=== PATIENT | female | born 1990 | race American Indian/Alaskan Native ===

== ENCOUNTER 2020-12-18 20:09 | Inpatient (IN) | payer MEDICAID ==
[2020-12-18] MEDS ORDERED: MINERAL OIL 30 ML ORAL LIQD PO PRN (22:38)
[2020-12-18] MEDS ORDERED: AMPICILLIN/NS 2 GM/100 ML 2 GM/100 ML BAG IV ONE (22:38)
[2020-12-18] MEDS ORDERED: PROMETHAZINE 25 MG TAB PO PRN (22:38)
[2020-12-18] MEDS ORDERED: NalbUPHINE 10 MG/1 ML INJ IV PRN (22:38)
[2020-12-18] MEDS ORDERED: TERBUTALINE 1 MG/1 ML INJ SUB-Q PRN (22:38)
[2020-12-18] MEDS ORDERED: fentaNYL 100 MCG/2 ML INJ IV PRN (22:38)
[2020-12-18] MEDS ORDERED: LACTATED RINGERS 1,000 ML IV SCH (22:45)
[2020-12-18] MEDS ORDERED: MAGNESIUM SULFATE 4 GM/100 ML BAG IV ONE (22:45)
[2020-12-18] MEDS ORDERED: LIDOCAINE (2%) 20 MG/1 ML VIAL 20 ML MDV INFILTRATI ONE (22:58)
[2020-12-18] MEDS ORDERED: OXYTOCIN DRIP 30 UNITS/500 ML BAG IV SCH ×2 (23:00→23:45)
--- NOTE | 2020-12-18 23:10 | History and Physical Report ---
History of Present Illness Date of examination: 12/18/20 Date of admission: 12/18/20 Chief complaint: scheduled induction for uncontrolled HTN per pt report History of present illness: at 37.3wk by LMP c/w [facility]. care at [facility]. Pt also seen by [facility] for consult. Pt sent for uncontrolled HTN on 2 meds procardia and labetalol 200mg bid. Pt admits to taking metformin 500mg bid for her pregest DM. Hgb a1c 5.6 in the records. Pt denies headache. Denies feeling ctx. Pt admits to movement, denies LOF or VB. shows pt advised to quit marijuana. Past History Past Medical History: hypertension, diabetes, other (Obesity, UTI treated this preg. TSH normal 1.2 2nd trimester, previously 0.5 in 1st) Family/Genetic History: none Social history: other (marijuana abuse) - Obstetrical History Expected Date of Delivery: 01/05/21 (O+; Ab neg; RI, RPR, HIV and HBsAg all neg; GBS neg in records) Actual Gestation: 37 Week(s) 3 Day(s) : 1 Number of Living Children: 0 Medications and Allergies Allergies Allergy/AdvReac Type Severity Reaction Status Date / Time No Known Allergies Allergy Unverified 12/18/20 21:00 Home Medications Medication Instructions Recorded Confirmed Last Taken Type Labetalol 200mg TAB 200 mg PO BID 12/18/20 12/18/20 12/18/20 18:00 History One Daily Tablet 1 tab PO DAILY 12/18/20 12/18/20 12/18/20 10:00 His tory metFORMIN [Glucophage] 500 mg PO BID 12/18/20 12/18/20 12/18/20 18:00 History Active Meds: Active Medications Ephedrine Sulfate (Ephedrine Sulfate 50 Mg/1 Ml Inj) 10 mg IV Q2M PRN PRN Reason: Hypotension Fentanyl (Fentanyl 100 Mcg/2 Ml Inj) 100 mcg IV Q2H PRN PRN Reason: Pain,Severe (7-10) LABOR PAIN Hydralazine HCl (Hydralazine 20 Mg/1 Ml Inj) 5 mg IV Q30MIN PRN PRN Reason: Hypertension Lactated Ringer's (Lactated Ringers) 1,000 mls @ 125 mls/hr IV DIRECT MILES Oxytocin/Sodium Chloride (Pitocin/Ns 30 Unit/500ml) 30 units in 500 mls @ 40 mls/hr IV TITR MILES; Protocol Ampicillin Sodium (Ampicillin/Ns 2 Gm/100 Ml) 2 gm in 100 mls @ 100 mls/hr IV ONCE ONE; Protocol Stop: 12/18/20 23:37 Lactated Ringer's (Lactated Ringers) 1,000 mls @ 125 mls/hr IV DIRECT MILES Magnesium Sulfate (Magnesium Sulfate 40gm/1000ml) 40 gm in 1,000 mls @ 25 mls/hr IV DIRECT MILES Oxytocin/Sodium Chloride (Pitocin/Ns 30 Unit/500ml) 30 units in 500 mls @ 2 mls/hr IV TITR MILES; Protocol Labetalol HCl (Labetalol 200 Mg Tab) 200 mg PO BID MILES Labetalol HCl (Labetalol 20 Mg/4 Ml Inj) 20 mg IV ONCE ONE Stop: 12/18/20 23:46 Labetalol HCl (Labetalol 100 Mg Tab) 100 mg PO BID [facility] Mineral Oil (Mineral Oil 30 Ml Oral Liqd) 30 ml PO QHS PRN PRN Reason: Constipation Nalbuphine HCl (Nalbuphine 10 Mg/1 Ml Inj) 10 mg IV Q2H PRN PRN Reason: Pain, Moderate (4-6) Promethazine HCl (Promethazine 25 Mg Tab) 25 mg PO Q6H PRN PRN Reason: Nausea And Vomiting Terbutaline Sulfate (Terbutaline 1 Mg/1 Ml Inj) 0.25 mg SUB-Q ONCE PRN PRN Reason: Hyperstimulation/Hypertonicity Review of Systems All systems: negative (heartburn since x1 day ago.) - Vital Signs Vital signs: Vital Signs Pulse BP 93 H 142/92 12/18/20 20:56 12/18/20 20:56 Temp Pulse Resp BP Pulse Ox 98.1 F 80 17 161/87 100 12/18/20 22:33 12/18/20 23:03 12/18/20 22:33 12/18/20 22:33 12/18/20 23:03 - Physical Exam Breasts: Positive: deferred Cardiovascular: Regular rate Lungs: Positive: Normal air movement Abdomen: Positive: other (obese) Genitourinary (Female): Positive: normal external genitalia Vulva: both: normal Vagina: Positive: normal moisture Cervix: Positive: other (posterior cervix) Anus/Rectum: Positive: normal perianal skin Extremities: Positive: normal - Obstetrical FHR: category 1 Uterine Contraction Monitor Mode: External Cervical Dilatation: 3 Cervical Effacement Percentage: 80 station: -2 Uterine Contraction Pattern: Irregular Results All other labs normal. Assessment and Plan Term IUP at 37.3wks with chronic HTN, superimposed preeclampsia; Pre-gest DM on metformin; Morbid Obesity in early labor; ?Thyroid disorder; H/O Substance abuse. 1. Admit to labor and delivery 2. PIH labs, Mag sulfate for seizure prophylaxis and IV hydrallazine and/or labetalol for BP>160/110; Labetalol increased to 300mg bid; procardia held 3. Augment labor with IV pitocin 4. Acucheck every 2hrs until active labor then every hr for pre-gest DM; check hgb A1c 5. may have IV pain med or epidural when pt desires 6. Will check TSH/FT4 7. Will check urine drug screen with substance abuse of marijuana Expect
[2020-12-18 23:48] LABS: Hematocrit 36.8 % (30.3-42.9); Hemoglobin 12.3 gm/dl (10.1-14.3); Mean Corpuscular HGB Conc 33 % (30-34); Mean Corpuscular Volume 87 fl (79-97); Platelet Count 164 K/mm3 (140-440); Red Blood Count 4.25 M/mm3 (3.65-5.03); Red Cell Distribution Width 13.4 % (13.2-15.2)
[2020-12-18] MEDS ORDERED: DINOPROSTONE 10 MG VAG SUPP VG ONE (23:48)
[2020-12-19] MEDS: LACTATED RINGERS 1,000 ML IV SCH ×4 (00:08→22:30)
[2020-12-19 00:23] LABS: Alanine Aminotransferase 19 units/L (7-56); Albumin 3.9 g/dL (3.9-5); Blood Urea Nitrogen 9 mg/dL (7-17); Calcium 8.9 mg/dL (8.4-10.2); Hemolysis Index 313
[2020-12-19 00:25] LABS: Amphetamine Screen,Urine PRESUMPTIVE NEGATIVE; Benzodiazepines Screen,Urine PRESUMPTIVE NEGATIVE; Cannabinoid Screen,Urine PRESUMPTIVE NEGATIVE; Cocaine Screen,Urine PRESUMPTIVE NEGATIVE; Methadone Screen,Urine PRESUMPTIVE NEGATIVE; Opiate Screen,Urine PRESUMPTIVE NEGATIVE
[2020-12-19 00:33] LABS: BUN/Creatinine Ratio 23
[2020-12-19] MEDS: MAGNESIUM SULFATE 40GM/1000ML 40 GM/1,000 ML BAG IV SCH (00:34)
[2020-12-19] MEDS: hydrALAZINE 20 MG/1 ML INJ IV PRN (04:08)
[2020-12-19 04:27] LABS: Uric Acid 6.6 mg/dL (3.5-7.6)
--- NOTE | 2020-12-19 09:40 | Progress Note ---
Assessment and Plan A: IUP@ 37.4 wks CHTN with preeclampsia Pregestational diabetes p: Continue monitoring FSBS Q 4 HR per MD Continue MgSo4 and Pitocin Anticipate Subjective - Subjective Date of service: 12/19/20 Principal diagnosis: IUP@ 37.4 wks Patient reports: movement normal Objective - Vital Signs Vital Signs: Vital Signs - 12hr 12/18/20 12/18/20 12/18/20 21:38 21:43 21:48 Temperature Pulse Rate 87 97 H 98 H Respiratory Rate Blood Pressure Blood Pressure [Right] O2 Sat by Pulse 99 100 100 Oximetry 12/18/20 12/18/20 12/18/20 21:53 21:58 22:03 Temperature Pulse Rate 86 85 85 Respiratory Rate Blood Pressure Blood Pressure [Right] O2 Sat by Pulse 100 100 100 Oximetry 12/18/20 12/18/20 12/18/20 22:08 22:13 22:18 Temperature Pulse Rate 85 83 84 Respiratory Rate Blood Pressure Blood Pressure [Right] O2 Sat by Pulse 100 100 100 Oximetry 12/18/20 12/18/20 12/18/20 22:23 22:28 22:33 Temperature 98.1 F Pulse Rate 90 86 83 Respiratory 17 Rate Blood Pressure 161/87 Blood Pressure [Right] O2 Sat by Pulse 100 100 99 Oximetry 12/18/20 12/18/20 12/18/20 22:38 22:43 22:48 Temperature Pulse Rate 79 86 89 Respiratory Rate Blood Pressure Blood Pressure [Right] O2 Sat by Pulse 99 100 100 Oximetry 12/18/20 12/18/20 12/18/20 22:53 22:58 23:03 Temperature Pulse Rate 85 100 H 80 Respiratory Rate Blood Pressure Blood Pressure [Right] O2 Sat by Pulse 100 100 100 Oximetry 12/18/20 12/18/20 12/18/20 23:08 23:13 23:18 Temperature Pulse Rate 93 H 81 85 Respiratory Rate Blood Pressure Blood Pressure [Right] O2 Sat by Pulse 100 100 100 Oximetry 12/18/20 12/18/20 12/18/20 23:22 23:23 23:28 Temperature Pulse Rate 82 88 87 Respiratory Rate Blood Pressure 142/64 Blood Pressure [Right] O2 Sat by Pulse 100 100 Oximetry 12/18/20 12/18/20 12/18/20 23:33 23:38 23:43 Temperature Pulse Rate 81 84 76 Respiratory Rate Blood Pressure Blood Pressure [Right] O2 Sat by Pulse 100 100 100 Oximetry 12/18/20 12/18/20 12/18/20 23:48 23:52 23:53 Temperature Pulse Rate 78 85 85 Respiratory Rate Blood Pressure 110/58 Blood Pressure [Right] O2 Sat by Pulse 100 100 Oximetry 12/18/20 12/19/20 12/19/20 23:58 00:03 00:08 Temperature Pulse Rate 77 91 H 85 Respiratory Rate Blood Pressure Blood Pressure [Right] O2 Sat by Pulse 100 100 100 Oximetry 12/19/20 12/19/20 12/19/20 00:11 00:13 00:18 Temperature Pulse Rate 76 79 81 Respiratory Rate Blood Pressure 138/77 Blood Pressure [Right] O2 Sat by Pulse 100 100 Oximetry 12/19/20 12/19/20 12/19/20 00:19 00:20 00:23 Temperature Pulse Rate 81 84 83 Respiratory 16 Rate Blood Pressure 146/78 Blood Pressure 146/78 [Right] O2 Sat by Pulse 98 99 Oximetry 12/19/20 12/19/20 12/19/20 00:24 00:26 00:28 Temperature 98.2 F Pulse Rate 84 85 89 Respiratory 16 Rate Blood Pressure 132/73 Blood Pressure 132/73 [Right] O2 Sat by Pulse 98 99 Oximetry 12/19/20 12/19/20 12/19/20 00:29 00:30 00:33 Temperature Pulse Rate 94 H 87 83 Respiratory 17 Rate Blood Pressure 128/70 Blood Pressure 128/70 [Right] O2 Sat by Pulse 99 99 Oximetry 12/19/20 12/19/20 12/19/20 00:35 00:38 00:43 Temperature Pulse Rate 84 83 85 Respiratory Rate Blood Pressure 127/68 Blood Pressure [Right] O2 Sat by Pulse 99 94 Oximetry 12/19/20 12/19/20 12/19/20 00:48 00:52 00:53 Temperature Pulse Rate 91 H 82 88 Respiratory Rate Blood Pressure 141/80 Blood Pressure [Right] O2 Sat by Pulse 100 99 Oximetry 12/19/20 12/19/20 12/19/20 00:58 01:03 01:08 Temperature Pulse Rate 99 H 78 79 Respiratory Rate Blood Pressure Blood Pressure [Right] O2 Sat by Pulse 99 98 99 Oximetry 12/19/20 12/19/20 12/19/20 01:13 01:18 01:23 Temperature Pulse Rate 95 H 98 H 89 Respiratory Rate Blood Pressure Blood Pressure [Right] O2 Sat by Pulse 99 100 100 Oximetry 12/19/20 12/19/20 12/19/20 01:28 01:30 01:33 Temperature Pulse Rate 89 95 H 83 Respiratory Rate Blood Pressure 145/82 Blood Pressure [Right] O2 Sat by Pulse 99 100 Oximetry 12/19/20 12/19/20 12/19/20 01:38 01:43 01:48 Temperature Pulse Rate 87 89 84 Respiratory Rate Blood Pressure Blood Pressure [Right] O2 Sat by Pulse 100 99 99 Oximetry 12/19/20 12/19/20 12/19/20 01:53 01:58 02:00 Temperature Pulse Rate 88 98 H 86 Respiratory Rate Blood Pressure 145/79 Blood Pressure [Right] O2 Sat by Pulse 100 100 Oximetry 12/19/20 12/19/20 12/19/20 02:03 02:08 02:13 Temperature Pulse Rate 85 79 79 Respiratory Rate Blood Pressure Blood Pressure [Right] O2 Sat by Pulse 100 100 100 Oximetry 12/19/20 12/19/20 12/19/20 02:18 02:23 02:28 Temperature Pulse Rate 84 91 H 82 Respiratory Rate Blood Pressure Blood Pressure [Right] O2 Sat by Pulse 100 100 100 Oximetry 12/19/20 12/19/20 12/19/20 02:32 02:33 02:38 Temperature Pulse Rate 88 85 87 Respiratory Rate Blood Pressure Blood Pressure [Right] O2 Sat by Pulse 94 100 100 Oximetry 12/19/20 12/19/20 12/19/20 02:43 02:48 02:53 Temperature Pulse Rate 81 85 79 Respiratory Rate Blood Pressure Blood Pressure [Right] O2 Sat by Pulse 100 100 100 Oximetry 12/19/20 12/19/20 12/19/20 02:58 03:03 03:08 Temperature Pulse Rate 92 H 86 90 Respiratory Rate Blood Pressure 194/97 Blood Pressure [Right] O2 Sat by Pulse 100 100 100 Oximetry 12/19/20 12/19/20 12/19/20 03:13 03:18 03:23 Temperature Pulse Rate 85 87 89 Respiratory Rate Blood Pressure Blood Pressure [Right] O2 Sat by Pulse 100 100 100 Oximetry 12/19/20 12/19/20 12/19/20 03:28 03:31 03:33 Temperature Pulse Rate 91 H 96 H 89 Respiratory Rate Blood Pressure 149/95 Blood Pressure [Right] O2 Sat by Pulse 100 100 Oximetry 12/19/20 12/19/20 12/19/20 03:38 03:43 03:48 Temperature Pulse Rate 84 84 86 Respiratory Rate Blood Pressure Blood Pressure [Right] O2 Sat by Pulse 100 100 100 Oximetry 12/19/20 12/19/20 12/19/20 03:50 03:53 03:58 Temperature Pulse Rate 99 H 99 H 93 H Respiratory Rate Blood Pressure Blood Pressure [Right] O2 Sat by Pulse 89 100 100 Oximetry 12/19/20 12/19/20 12/19/20 04:02 04:03 04:05 Temperature Pulse Rate 91 H 89 105 H Respiratory Rate Blood Pressure 195/102 Blood Pressure [Right] O2 Sat by Pulse 100 87 Oximetry 12/19/20 12/19/20 12/19/20 04:08 04:13 04:18 Temperature Pulse Rate 93 H 87 96 H Respiratory Rate Blood Pressure 195/102 Blood Pressure [Right] O2 Sat by Pulse 99 100 100 Oximetry 12/19/20 12/19/20 12/19/20 04:23 04:27 04:28 Temperature Pulse Rate 94 H 99 H 95 H Respiratory Rate Blood Pressure 147/97 Blood Pressure [Right] O2 Sat by Pulse 100 100 Oximetry 12/19/20 12/19/20 12/19/20 04:33 04:38 04:43 Temperature Pulse Rate 94 H 91 H 91 H Respiratory Rate Blood Pressure 137/82 Blood Pressure [Right] O2 Sat by Pulse 100 100 97 Oximetry 12/19/20 12/19/20 12/19/20 04:48 04:53 04:57 Temperature Pulse Rate 93 H 112 H 89 Respiratory Rate Blood Pressure 135/78 Blood Pressure [Right] O2 Sat by Pulse 99 100 Oximetry 12/19/20 12/19/20 12/19/20 04:58 05:03 05:08 Temperature Pulse Rate 95 H 86 90 Respiratory Rate Blood Pressure Blood Pressure [Right] O2 Sat by Pulse 99 100 100 Oximetry 12/19/20 12/19/20 12/19/20 05:11 05:13 05:18 Temperature Pulse Rate 88 86 83 Respiratory Rate Blood Pressure 146/85 Blood Pressure [Right] O2 Sat by Pulse 100 100 Oximetry 12/19/20 12/19/20 12/19/20 05:23 05:28 05:31 Temperature Pulse Rate 85 86 92 H Respiratory Rate Blood Pressure 145/75 Blood Pressure [Right] O2 Sat by Pulse 100 98 91 Oximetry 12/19/20 12/19/20 12/19/20 05:33 05:38 05:42 Temperature Pulse Rate 84 85 84 Respiratory Rate Blood Pressure 161/83 Blood Pressure [Right] O2 Sat by Pulse 100 100 Oximetry 12/19/20 12/19/20 12/19/20 05:43 05:48 05:53 Temperature Pulse Rate 87 105 H 81 Respiratory Rate Blood Pressure Blood Pressure [Right] O2 Sat by Pulse 99 89 100 Oximetry 12/19/20 12/19/20 12/19/20 05:57 05:58 06:03 Temperature Pulse Rate 90 79 93 H Respiratory Rate Blood Pressure 150/84 Blood Pressure [Right] O2 Sat by Pulse 99 100 Oximetry 12/19/20 12/19/20 12/19/20 06:08 06:13 06:18 Temperature Pulse Rate 83 84 73 Respiratory Rate Blood Pressure Blood Pressure [Right] O2 Sat by Pulse 100 100 100 Oximetry 12/19/20 12/19/20 12/19/20 06:23 06:28 06:33 Temperature Pulse Rate 78 74 79 Respiratory Rate Blood Pressure Blood Pressure [Right] O2 Sat by Pulse 99 100 100 Oximetry 12/19/20 12/19/20 12/19/20 06:38 06:42 06:43 Temperature Pulse Rate 79 88 96 H Respiratory Rate Blood Pressure 181/98 Blood Pressure [Right] O2 Sat by Pulse 100 100 Oximetry 12/19/20 12/19/20 12/19/20 06:48 06:53 06:58 Temperature Pulse Rate 96 H 73 75 Respiratory Rate Blood Pressure Blood Pressure [Right] O2 Sat by Pulse 100 100 100 Oximetry 12/19/20 12/19/20 12/19/20 07:03 07:08 07:13 Temperature Pulse Rate 79 86 84 Respiratory Rate Blood Pressure Blood Pressure [Right] O2 Sat by Pulse 99 99 99 Oximetry 12/19/20 12/19/20 12/19/20 07:14 07:18 07:23 Temperature Pulse Rate 87 83 81 Respiratory Rate Blood Pressure Blood Pressure [Right] O2 Sat by Pulse 88 100 100 Oximetry 12/19/20 12/19/20 12/19/20 07:28 07:33 07:38 Temperature Pulse Rate 81 90 74 Respiratory Rate Blood Pressure Blood Pressure [Right] O2 Sat by Pulse 100 99 100 Oximetry 12/19/20 12/19/20 12/19/20 07:42 07:43 07:45 Temperature Pulse Rate 86 92 H 90 Respiratory Rate Blood Pressure 146/87 146/87 Blood Pressure [Right] O2 Sat by Pulse 100 Oximetry 12/19/20 12/19/20 12/19/20 07:48 07:51 07:53 Temperature Pulse Rate 84 64 91 H Respiratory Rate Blood Pressure Blood Pressure [Right] O2 Sat by Pulse 100 90 100 Oximetry 12/19/20 12/19/20 12/19/20 07:56 07:58 08:03 Temperature 97.5 F L Pulse Rate 78 82 Respiratory 20 Rate Blood Pressure Blood Pressure [Right] O2 Sat by Pulse 100 100 100 Oximetry 12/19/20 12/19/20 12/19/20 08:07 08:08 08:12 Temperature Pulse Rate 95 H 94 H 83 Respiratory Rate Blood Pressure 163/91 Blood Pressure [Right] O2 Sat by Pulse 81 L 88 Oximetry 12/19/20 12/19/20 12/19/20 08:13 08:17 08:18 Temperature Pulse Rate 85 87 87 Respiratory Rate Blood Pressure Blood Pressure [Right] O2 Sat by Pulse 100 92 100 Oximetry 12/19/20 12/19/20 12/19/20 08:23 08:28 08:31 Temperature Pulse Rate 83 80 80 Respiratory Rate Blood Pressure 158/88 Blood Pressure [Right] O2 Sat by Pulse 100 100 Oximetry 12/19/20 12/19/20 12/19/20 08:34 08:39 08:44 Temperature Pulse Rate 80 87 75 Respiratory Rate Blood Pressure Blood Pressure [Right] O2 Sat by Pulse 99 98 98 Oximetry 12/19/20 12/19/20 12/19/20 08:45 08:49 08:54 Temperature Pulse Rate 74 95 H 85 Respiratory Rate Blood Pressure 148/76 Blood Pressure [Right] O2 Sat by Pulse 100 100 Oximetry 12/19/20 12/19/20 12/19/20 08:59 09:02 09:04 Temperature Pulse Rate 82 77 78 Respiratory Rate Blood Pressure 149/75 Blood Pressure [Right] O2 Sat by Pulse 100 100 Oximetry 05/12/0612/19/20 12/19/20 09:09 09:14 09:15 Temperature Pulse Rate 85 96 H 83 Respiratory Rate Blood Pressure 138/65 Blood Pressure [Right] O2 Sat by Pulse 100 100 Oximetry 12/19/20 12/19/20 12/19/20 09:19 09:24 09:29 Temperature Pulse Rate 84 87 76 Respiratory Rate Blood Pressure 141/65 Blood Pressure [Right] O2 Sat by Pulse 98 100 100 Oximetry - Exam Breasts: normal Abdomen: Present: normal appearance, soft, normal bowel sounds Vulva: both: normal Uterus: Present: normal FHR: category 1 Uterine Contraction Monitor Mode: External Cervical Dilatation: 4 Cervical Effacement Percentage: 75 station: -3 Uterine Contraction Frequency (min): irreg Uterine Contraction Pattern: Irregular Uterine Tone Measurement Phase: Resting Uterine Contraction Intensity: Mild Extremities: normal - Labs Labs: Abnormal Labs 12/18/20 12/19/20 12/19/20 21:24 01:18 06:02 Sodium 134 L Potassium 5.9 H Carbon Dioxide 21 L Creatinine 0.4 L Glucose 104 H POC Glucose 132 H 126 H Magnesium AST 46 H Lactate Dehydrogenase 578 H Total Protein 6.2 L 12/19/20 07:42 Sodium Potassium Carbon Dioxide Creatinine Glucose POC Glucose Magnesium 2.80 H AST Lactate Dehydrogenase Total Protein Laboratory Results - last 24 hr 12/18/20 12/18/20 12/18/20 21:24 21:24 21:24 WBC 6.4 RBC 4.25 Hgb 12.3 Hct 36.8 MCV 87 MCH 29 MCHC 33 RDW 13.4 Plt Count 164 Sodium 134 L Potassium 5.9 H Chloride 101.2 Carbon Dioxide 21 L Anion Gap 18 BUN 9 Creatinine 0.4 L Estimated GFR > 60 BUN/Creatinine Ratio 23 Glucose 104 H POC Glucose Uric Acid 6.6 Calcium 8.9 Magnesium Total Bilirubin 0.30 AST 46 H ALT 19 Alkaline Phosphatase 47 Lactate Dehydrogenase 578 H Total Protein 6.2 L Albumin 3.9 Albumin/Globulin Ratio 1.7 TSH Free T4 0.99 Urine Opiates Screen Urine Methadone Screen Ur Barbiturates Screen Ur Phencyclidine Scrn Ur Amphetamines Screen U Benzodiazepines Scrn Urine Cocaine Screen U Marijuana (THC) Screen Drugs of Abuse Note Blood Type Antibody Screen 12/18/20 12/18/20 12/19/20 21:24 22:15 01:18 WBC RBC Hgb Hct MCV MCH MCHC RDW Plt Count Sodium Potassium Chloride Carbon Dioxide Anion Gap BUN Creatinine Estimated GFR BUN/Creatinine Ratio Glucose POC Glucose 132 H Uric Acid Calcium Magnesium Total Bilirubin AST ALT Alkaline Phosphatase Lactate Dehydrogenase Total Protein Albumin Albumin/Globulin Ratio TSH 1.730 Free T4 Urine Opiates Screen Presumptive negative Urine Methadone Screen Presumptive negative Ur Barbiturates Screen Presumptive negative Ur Phencyclidine Scrn Presumptive negative Ur Amphetamines Screen Presumptive negative U Benzodiazepines Scrn Presumptive negative Urine Cocaine Screen Presumptive negative U Marijuana (THC) Screen Presumptive negative Drugs of Abuse Note Disclamer Blood Type Antibody Screen 12/19/20 12/19/20 12/19/20 02:08 06:02 07:42 WBC RBC Hgb Hct MCV MCH MCHC RDW Plt Count Sodium Potassium Chloride Carbon Dioxide Anion Gap BUN Creatinine Estimated GFR BUN/Creatinine Ratio Glucose POC Glucose 126 H Uric Acid Calcium Magnesium 2.80 H Total Bilirubin AST ALT Alkaline Phosphatase Lactate Dehydrogenase Total Protein Albumin Albumin/Globulin Ratio TSH Free T4 Urine Opiates Screen Urine Methadone Screen Ur Barbiturates Screen Ur Phencyclidine Scrn Ur Amphetamines Screen U Benzodiazepines Scrn Urine Cocaine Screen U Marijuana (THC) Screen Drugs of Abuse Note Blood Type O POSITIVE Antibody Screen Negative
[2020-12-19] MEDS ORDERED: NALOXONE 2 MG/2 ML INJ IV PRN (12:18)
[2020-12-19] MEDS ORDERED: LACTATED RINGERS 250 ML IV SOLN IV ONE (12:18)
--- NOTE | 2020-12-19 12:22 | Anesthesia Consultation ---
Anesthesia Consult and Med Hx Date of service: 12/19/20 - Airway Anesthetic Teeth Evaluation: Good ROM Head & Neck: Adequate Mental/Hyoid Distance: Adequate Mallampati Class: Class IV Intubation Access Assessment: Difficult - Pulmonary Exam CTA: Yes - Cardiac Exam Cardiac Exam: RRR - Pre-Operative Health Status ASA Pre-Surgery Classification: ASA3 Proposed Anesthetic Plan: Epidural - Pulmonary Hx Smoking: Yes Hx Asthma: No COPD: No Hx Pneumonia: No Hx Sleep Apnea: No - Cardiovascular System Hx Hypertension: Yes (since 16 y.o) Hx Heart Attack/AMI: No Hx Angina: No - Central Nervous System Hx Seizures: No Hx Psychiatric Problems: No - Gastrointestinal Hx Gastroesophageal Reflux Disease: No - Endocrine Hx Renal Disease: No Hx End Stage Renal Disease: No Hx Cirrhosis: No Hx Insulin Dependent Diabetes: Yes Hx Non-Insulin Dependent Diabetes: No Hx Hypothyroidism: No Hx Hyperthyroidism: No - Hematic Hx Anemia: Yes Hx Sickle Cell Disease: No - Other Systems Hx Alcohol Use: No Hx Obesity: Yes
--- NOTE | 2020-12-19 12:25 | Progress Note ---
Labor Epidural - Labor Epidural Start Time: 11:56 Stop Time: 12:13 Performed by:: ROSALINDA ANTHONY ([facility]) Procedure: Patient is requesting epidural for labor and pain. H&P, labs were reviewed. Patient IDed, H&P reviewed, all questions and concerns were answered, and consent was signed. Timeout was performed at bedside. Patient in sitting position. Sterile prep and drape was performed. 3ml of 1% lidocaine skin wheal at L[3]- L [4]. 18-gauge Tuohy epidural needle was advanced to loss of resistance with air technique 9cm. Negative CSF negative blood. Epidural catheter advanced to [15] centimeters. [negative] Aspiration [negative] test dose. Sterile dressing applied. Patient tolerated procedure.
[2020-12-19] MEDS ORDERED: diphenhydrAMINE 50 MG/ML VIAL IV PRN (12:30)
[2020-12-19] MEDS ORDERED: NalbUPHINE 10 MG/1 ML INJ IV PRN (12:30)
[2020-12-19] MEDS ORDERED: ONDANSETRON 4 MG/2 ML INJ IV PRN (12:30)
[2020-12-19] MEDS ORDERED: fentaNYL-BUPIV 2 MCG/ML-0.125% 200 MCG/100 ML BAG EPIDURAL SCH (13:00)
[2020-12-19] MEDS: ePHEDrine SULFATE 50 MG/1 ML INJ IV PRN ×2 (13:01→13:03)
[2020-12-20] MEDS ORDERED: LIDOCAINE (2%) 20 MG/1 ML VIAL 20 ML MDV INFILTRATI ONE ×2 (01:18→01:22)
[2020-12-20] MEDS ORDERED: diphenhydrAMINE 25 MG CAP PO PRN (01:59)
[2020-12-20] MEDS ORDERED: LANOLIN/ZINC/DIMETHICONE (LANSINOH) 7 GM TP PRN (01:59)
[2020-12-20] MEDS ORDERED: ACETAMINOPHEN 325 MG TAB PO PRN (01:59)
[2020-12-20] MEDS ORDERED: ONDANSETRON 4 MG/2 ML INJ IV PRN (01:59)
[2020-12-20] MEDS ORDERED: MAGNESIUM HYDROXIDE (MOM) ORAL LIQD UDC PO PRN (01:59)
[2020-12-20] MEDS ORDERED: WITCH HAZEL/ GLYCERIN PAD TP PRN (01:59)
[2020-12-20] MEDS ORDERED: PROMETHAZINE 25 MG TAB PO PRN (01:59)
[2020-12-20] MEDS ORDERED: PROMETHAZINE 25 MG RECT SUPP PR PRN (01:59)
[2020-12-20] MEDS ORDERED: HYDROCORTISONE 25 MG RECTAL SUPP PR PRN (01:59)
--- NOTE | 2020-12-20 02:03 | Procedure Note ---
OB Delivery Note - Delivery Date of Delivery: 12/20/20 Surgeon: GRACIE ALARCON JR Estimated blood loss: other (400cc) - Vaginal Delivery presentation: vertex Delivery position: OA Intrapartum events: none Delivery induction: oxytocin Delivery augmentation: rupture of membranes, pitocin Delivery monitor: external FHT, external uterine Route of delivery: Delivery placenta: spontaneous Episiotomy: none Delivery laceration: 2nd degree, vaginal side wall (bilateral) Delivery repair: vicryl Anesthesia: local, epidural Delivery comments: Spontaneous delivery of male at 0113. 2700 g. 19 inches. Apgars 8/9. Fundus firm after delivery of placenta. Noted to have second-degree perineal laceration and bilateral sidewall lacerations. Perineal laceration and right sidewall laceration repaired with 2-0 Vicryl. - Infant A at 1 minute: 8 at 5 minutes: 9 Infant Gender: Male
[2020-12-20] MEDS: IBUPROFEN 600 MG TAB PO SCH ×3 (06:04→18:18)
[2020-12-20] MEDS: metFORMIN 500 MG TAB PO SCH ×2 (08:22→17:02)
--- NOTE | 2020-12-20 15:27 | Post Anesthesia Evaluation ---
- Post Anesthesia Evaluation Patient Participated: Yes Airway Patent: Yes Stable Respiratory Function: Yes Nausea/Vomiting: No Temp > 96.8F: Yes Pain Manageable: Yes Adequeate Hydration: Yes Anesthesia Complications: No Block Receding Appropriately: Yes Patient on Ventilator: No
[2020-12-20] MEDS: LACTATED RINGERS 1,000 ML IV SCH (16:25)
[2020-12-20] MEDS: MAGNESIUM SULFATE 40GM/1000ML 40 GM/1,000 ML BAG IV SCH (16:28)
[2020-12-20] MEDS ORDERED: INSULIN REGULAR, HUMAN 100 UNITS/1 ML SUB-Q SCH (17:00)
[2020-12-20] MEDS: hydrALAZINE 20 MG/1 ML INJ IV PRN (19:59)
[2020-12-21] MEDS: metFORMIN 500 MG TAB PO SCH ×2 (08:28→17:08)
[2020-12-21] MEDS: HYDROcodone/ACETAMINOPHEN 5-325 MG TAB PO PRN (13:41)
[2020-12-21] MEDS: IBUPROFEN 600 MG TAB PO SCH ×2 (17:08→23:48)
--- NOTE | 2020-12-21 21:07 | Progress Note ---
Assessment and Plan PPD # 1 A: S/P HTN with laible b/ps pregestational DM p; Continue routine pp care Continue b/p monitoring and scheduled Labetalol Continue FSBS accuchecks as scheduled D/c home when b/p is stable Subjective - Subjective Date of service: 12/21/20 (late entry for 8:30am) Principal diagnosis: IUP@ 37.4 wks Patient reports: appetite normal, voiding normally, pain well controlled, ambulating normally [place]: doing well, bottle feeding Objective - Vital Signs Latest vital signs: Vital Signs Temp Pulse Resp BP BP Pulse Ox 12/21/20 20:08 98.0 F 71 17 153/83 98 12/21/20 19:55 71 153/83 12/21/20 19:54 71 153/83 12/21/20 16:15 98.4 F 95 H 18 148/87 100 12/21/20 12:25 156/95 12/21/20 12:17 98.7 F 90 18 179/94 97 12/21/20 08:23 98.6 F 78 18 151/87 100 12/21/20 02:56 97.7 F 78 20 142/77 99 12/21/20 01:48 75 145/76 12/21/20 01:33 73 144/74 12/21/20 01:18 76 158/76 12/21/20 01:03 72 142/74 12/21/20 00:48 77 168/81 12/21/20 00:33 77 139/66 12/21/20 00:18 78 138/63 12/21/20 00:03 90 159/87 12/20/20 23:48 83 151/92 12/20/20 23:33 75 131/62 12/20/20 23:18 86 142/71 12/20/20 23:03 81 144/68 12/20/20 22:48 79 133/60 12/20/20 22:33 80 144/65 12/20/20 22:18 89 141/70 12/20/20 22:03 87 136/66 12/20/20 21:48 88 138/63 12/20/20 21:33 88 136/76 12/20/20 21:18 97 H 153/81 12/20/20 21:03 89 159/93 Intake and Output 12/21/20 12/21/20 12/21/20 06:59 14:59 22:59 Output Total 700 Balance -700 Output: Urine 700 Indwelling Catheter 700 Other: Total, Output Amount 350 - Exam Breasts: Present: normal Abdomen: Present: normal appearance, soft, normal bowel sounds Vulva: both: normal Uterus: Present: normal, firm, fundal height below umbilicus Extremities: Present: normal Incision: Present: normal, intact, other (2nd degree perineal lac, jame sidewall lac) - Labs Labs: Abnormal lab results 12/20/20 12/21/20 12/21/20 Range/Units 22:38 12:38 16:50 POC Glucose 139 H 120 H 112 H (70-105) mg/dL
--- NOTE | 2020-12-22 07:34 | Discharge Summary ---
Providers - Providers Date of Admission: 12/18/20 22:38 Date of discharge: 12/22/20 Attending physician: RULA ALDANA Primary care physician: RULA ALDANA Hospitalization Reason for admission: induction of labor Delivery: Episiotomy: none Laceration: 2nd degree Incision: normal, intact Other procedures: none complications: none [place] baby: male Hospital course: Pt was admitted for an IOL r/t uncontrolled htn. She had a w/o pp complications. See H&P, delivery summary, and pp notes. Condition at discharge: Stable Disposition: DC-01 TO HOME OR SELFCARE Plan - Discharge Medications Prescriptions: labetaloL [Labetalol 100mg TAB] 100 mg PO Q12H #120 tablet Ibuprofen [Motrin 600 MG tab] 600 mg PO Q6HR #30 tablet - Provider Discharge Summary Activity: routine, no sex for 6 weeks, no heavy lifting 4 weeks, no strenuous exercise Diet: other (diabetic) Instructions: routine Additional instructions: [] Smoking cessation referral if applicable(refer to patient education folder for contact #) [] Refer to [facility] Booklet Call your doctor immediately for: * Fever > 100.5 * Heavy vaginal bleeding ( >1 pad per hour) * Severe persistent headache * Shortness of breath * Reddened, hot, painful area to leg or breast * Drainage or odor from incision. * Keep incision clean and dry at all times and follow doctor's instructions regarding bathing/showering - Follow up plan Follow up: RULA ALDANA MD [Primary Care Provider] - 6 Weeks
[2020-12-22] MEDS: metFORMIN 500 MG TAB PO SCH (08:48)
[2020-12-22] MEDS: HYDROcodone/ACETAMINOPHEN 5-325 MG TAB PO PRN (11:12)
[2020-12-22 17:03] VITALS: BP 169/83
--- NOTE | 2020-12-22 17:39 | Event Note ---
Date: 12/22/20 Patient's discharge was cancelled due to elevated blood pressures. Spoke with patient and advised her that she needs to stay tonight and be seen by hospitalist re: uncontrolled BP. Patient refused to stay. Patient signed out AMA. Advised patient of risks of uncontrolled blood pressure and risks of signing herself out against medical advice. Advised patient that she may return at any time. Advised patient that she must take her blood pressure medication at home (pt. states she already has Labetalol at home) and that she must follow up at [facility] office in 3 days for a BP check. Informed nurse that patient wishes to sign herself out against medical advice.
== END 2020-12-22 17:35 | disposition left against medical advice (07) | DRG 775 ==
LOC: TRG 20:09 → LD 20:16 → TRG 22:38 → OB 12-21 03:02
PROVIDERS: ADMIT Obstetrics & Gynecology; ATTEND Obstetrics & Gynecology
PROC: 3E0R3BZ Introduction of Anesthetic Agent into Spinal Canal, Percutaneous Approach (ICD-10-PCS; 2020-12-19)
PROC: 00HU33Z Insertion of Infusion Device into Spinal Canal, Percutaneous Approach (ICD-10-PCS; 2020-12-19)
PROC: 10E0XZZ Delivery of Products of Conception, External Approach (ICD-10-PCS; principal; 2020-12-20)
PROC: 3E033VJ Introduction of Other Hormone into Peripheral Vein, Percutaneous Approach (ICD-10-PCS; 2020-12-20)
PROC: 0KQM0ZZ Repair Perineum Muscle, Open Approach (ICD-10-PCS; 2020-12-20)
DX: O99.214 Obesity complicating childbirth (principal); Z3A.37 37 weeks gestation of pregnancy; Z37.0 Single live birth; O13.4 Gestational [pregnancy-induced] hypertension without significant proteinuria, complicating childbirth; E66.01 Morbid (severe) obesity due to excess calories; Z20.822 Contact with and (suspected) exposure to COVID-19; O70.1 Second degree perineal laceration during delivery
CPT/HCPCS: 36415; 80053; 80307; 82962; 83036; 83615; 83735; 84439; 84443; 84550; 85014; 85018; 85027; 86850; 86900; 86901; 88307; G0378; J0360; J1815; J2590; J3475; J7120; U0003